=== PATIENT | male | born 1980 | race Caucasian/White ===

== ENCOUNTER 2017-04-24 19:11 | Inpatient (IN) | payer BC, OTHER ==
[~2017-04-24] VITALS: Ht 180.3 cm; Wt 77.1 kg
--- NOTE | 2017-04-24 22:30 | NUR ---
Pre admission note Pt assessed in intake office. Pt appears intoxicated upon arrival but stable at this time. V/S WNL. Policies on medication disposal explained to and understood by Pt. Pt is suitable for admission. Will admit to unit.
[2017-04-24 22:40] LABS: *AMPHETAMINE, URINE POSITIVE (NEGATIVE); *BARBITURATE, URINE NEGATIVE (NEGATIVE); *CANNABINOID, URINE NEGATIVE (NEGATIVE); *COCCAINE, URINE NEGATIVE (NEGATIVE); *OPIATE, URINE POSITIVE (NEGATIVE); *PHENCYCLIDINE SCREEN,URINE NEGATIVE (NEGATIVE)
--- NOTE | 2017-04-24 22:45 | NUR ---
Admission note Pt is a 36 yo male, A+Ox4, presenting to [facility] for Methamphetamine/Cocaine/Benzo/Opiate dependence. Pt has Allergies Mushroom, Avocado, and mashed potatoes, is Full Code status, and on Regular diet. Pt is 5'11" in height and 170 LBS in weight. Pt has medical HX of Anxiety, depression, and Bipolar II. Pt has family HX of HTN from Father. Pt has Primary care provider named DR. Lange. Pt has been using Methamphetamine intranasally for 10 months (16 days currently), has reached a level of 3.5gm/daily, and last dose was 3.5gm on 04-24-17 @1700. Pt has been using cocaine intranasally for 13 years (16 days currently), has reached a level of 3.5gm/daily, and last dose was 3.5gm on 04-24-17 @1700. Pt has been taking Klonopin PO for 2 years (16 days currently), has reached a level of 2mg/daily, and last dose was 2mg on 04-20-17. Pt has been taking Xanax Po for 2 years (16 days currently), has reached a level of 2mg/daily, and last dose was 2mg on 04-18-17. Pt has been taking Vicodin PO for 2 years (16 days currently), has reached a level of 100mg/week, and last dose was 20mg on 04-24-17 @1700. Pt has been taking home medications as follows: [place] 600mg BID-Last dose was 600mg on 04-24-17 @2199, Propranolol 40mg BID-Last dose was 40mg on 04-24-17 @2199, Wellbutrin 150mg QD-Last dose 150mg 04-23-17, Klonopin 1mg BID-Last dose was 2mg on 04-20-17, Xanax 1mg BIDPRN- Last dose was 2mg on 04-18-17. Pt has HX of previous detox/rehab for 30 days in February 2017 [facility] in [place], [place]. Pt continued sobriety for a total of "52 days" relapse 16 days ago. This was the Pt's last time sober. Pt has no smoked cigarettes since "high school age". Pt appears intoxicated upon admission but is stable at this time. No s/s of distress noted at this time. Respirations even and unlabored. Will continue to monitor.
[2017-04-24] MEDS ORDERED: diphenhydrAMINE 50 MG CAPSULE PO PRN (23:00)
[2017-04-24] MEDS ORDERED: ACETAMINOPHEN 325 MG TABLET PO PRN (23:00)
[2017-04-24] MEDS ORDERED: LOPERAMIDE HCL 2 MG CAPSULE PO PRN ×2 (23:00)
[2017-04-24] MEDS ORDERED: HYDROXYZINE PAMOATE 25 MG CAPSULE PO PRN (23:00)
[2017-04-24] MEDS ORDERED: ONDANSETRON ODT 4 MG TAB.RAPDIS SL PRN (23:00)
[2017-04-24] MEDS ORDERED: MAG HYDROX/AL HYDROX/SIMETH 30 ML LIQUID UDC PO PRN (23:00)
[2017-04-24] MEDS ORDERED: CLONIDINE HCL 0.1 MG TABLET PO PRN (23:00)
[2017-04-24] MEDS ORDERED: LORAZEPAM 2 MG/1 ML VIAL IM PRN (23:00)
[2017-04-24] MEDS ORDERED: DICYCLOMINE HCL 20 MG TABLET PO PRN (23:00)
[2017-04-24] MEDS ORDERED: DIAZEPAM 5 MG TABLET PO PRN (23:00)
[2017-04-24] MEDS ORDERED: BUPRENORPHINE HCL 2 MG TAB.SUBL SL PRN (23:00)
[2017-04-24] MEDS ORDERED: MAGNESIUM HYDROXIDE 30 ML LIQUID UDC PO PRN (23:00)
[2017-04-24] MEDS ORDERED: IBUPROFEN 400 MG TABLET PO PRN (23:00)
[2017-04-24] MEDS ORDERED: MIRALAX 17 GM POWD.PACK PO PRN (23:00)
[2017-04-24] MEDS ORDERED: DIAZEPAM 10 MG TABLET PO PRN (23:00)
[2017-04-25 00:04] VITALS: BP 139/92
[2017-04-25 00:04] LABS: BASOPHILS # (AUTO) 0.1 K/uL (0.0-8.0); EOSINOPHILS # (AUTO) 0.1 K/uL (0.0-0.7); EOSINOPHILS % (AUTO) 1.3 % (0.0-7.0); HEMATOCRIT 39.2 % (40-50); HEMOGLOBIN 13.3 G/DL (14.0-18.0); LYMPHOCYTES # (AUTO) 2.2 K/UL (0.8-4.8); LYMPHOCYTES % (AUTO) 29.7 % (20.5-51.5); MEAN CORPUSCULAR HEMOGLOBIN 30.5 UUG (27.0-31.0); MEAN CORPUSCULAR HGB CONC 34 g/dL (32.0-37.0); MEAN CORPUSCULAR VOLUME 89.8 FL (82.0-92.0); MONOCYTES # (AUTO) 0.7 K/UL (0.1-1.30); MONOCYTES % (AUTO) 9.4 % (0.0-11.0); NEUTROPHILS # (AUTO) 4.2 K/UL (1.8-8.9); NEUTROPHILS % (AUTO) 58.6 % (38.5-71.5); PLATELET COUNT (AUTO) 406 K/UL (150-450); RED BLOOD CELL COUNT(AUTO) 4.37 MIL/UL (4.7-6.1); WHITE BLOOD COUNT (AUTO) 7.3 K/UL (4.0-11.2)
[2017-04-25] MEDS ORDERED: LORAZEPAM 1 MG TABLET ONE (00:04)
[2017-04-25] MEDS: DIAZEPAM 10 MG TABLET PO PRN ×2 (00:06→20:09)
--- NOTE | 2017-04-25 00:06 | NUR ---
PRN Valium Pt c/o anxiety with CIWA: 10. PRN Valium 10mg given and tolerated well. Will reassess within 1 HR. Will continue to monitor.
[2017-04-25 00:16] LABS: ALANINE AMINOTRANSFERASE 62 U/L (16-63); ALKALINE PHOSPHATASE 64 U/L (50-136); AMYLASE 28 U/L (25-115); ASPARTATE AMINOTRANSFERASE 64 U/L (15-37); BILIRUBIN,TOTAL 0.1 mg/dL (0.2-1.0); CARBON DIOXIDE 29 mmol/L (21-32); CHLORIDE 108 mmol/L (98-107); CREATININE 1.2 mg/dL (0.6-1.3); GLUCOSE 115 mg/dL (74-106); LIPASE 202 U/L (73-393); MAGNESIUM 2.3 mg/dL (1.8-2.4); POTASSIUM 3.5 mmol/L (3.5-5.1); TOTAL PROTEIN, SERUM 6.5 g/dL (6.4-8.2); UREA NITROGEN, BLOOD 13 mg/dL (7-18)
[2017-04-25] MEDS ORDERED: DIAZEPAM 10 MG TABLET ONE (00:16)
[2017-04-25 00:21] LABS: ETHANOL < 3 MG/DL (0-0)
[2017-04-25 00:26] LABS: THYROID STIMULATING HORMONE 0.739 mIU/mL (0.358-3.740)
[2017-04-25] MEDS ORDERED: CLON1TAB PO (00:36)
[2017-04-25] MEDS ORDERED: LITH600C PO (00:37)
[2017-04-25] MEDS ORDERED: ALPR2TAB7 PO (00:37)
[2017-04-25] MEDS ORDERED: PROP40TA7 PO (00:39)
[2017-04-25] MEDS ORDERED: BUPR-96 PO (00:39)
[2017-04-25] MEDS ORDERED: ASEN10TA9 SL (00:40)
[2017-04-25] MEDS ORDERED: [UNRECOGNIZED DRUG - REMARK] (00:41)
--- NOTE | 2017-04-25 01:02 | NUR ---
PRN Valium Reassessment Medication effective. Pt shows reduction in anxiety with CIWA: 6. No s/s of ASE/distress noted at this time. Respirations even and unlabored. Will continue to monitor.
[2017-04-25 04:22] VITALS: BP 123/74
--- NOTE | 2017-04-25 06:56 | NUR ---
End of shift note Pt is a 36 yo male, A+Ox4, presenting to [facility] for Methamphetamine/Cocaine/Benzo/Opiate dependence. Pt has Allergies Mushroom, Avocado, and mashed potatoes, is Full Code status, and on Regular diet. Pt has medical HX of Anxiety, depression, and Bipolar II. Pt is on PRN medications. Pt was given PRN Valium 10mg @0006. Pt slept for a total of 5 HRS. Last COWS: 4 and Last CIWA: 3 @0400. No s/s of distress noted at this time. Respirations even and unlabored. Will endorse to day shift nurse.
--- NOTE | 2017-04-25 07:30 | NUR ---
Start of shift note; Received report from night nurse. Patient is a 36 year old male admitted on 04/24/17 for Opiate/ Benzo/ Methamphetamine/ Cocaine dependence. Patient reported history of Bipolar II, depression and anxiety. Patient is on full code status, Allergic to mushroom, avocado, mashed potatoes. Skin is intact. Patient received Valium PRN last night noted to be effective. Patient slept for 5 hours. Patient's last COWS is 4 and last CIWA is 3 at 0400. Patient is on fall and seizure precaution. Bed in lowest position, call light within reach. Will continue to monitor patient.
[2017-04-25 08:00] VITALS: BP 118/64
[2017-04-25] MEDS ORDERED: TUBERCULIN,PURIF.PROT.DERIV. 5 TU/0.1 ML TEST ID ONE ×2 (09:00→11:15)
[2017-04-25] MEDS: MULTIVITAMINS,THERAPEUTIC TABLET PO SCH (09:00)
[2017-04-25] MEDS: DOCUSATE SODIUM 250 MG CAPSULE PO SCH (09:00)
[2017-04-25] MEDS ORDERED: LITHIUM CARBONATE PO SCH (10:45)
[2017-04-25] MEDS: buPROPion XL 150 MG TAB.SR.24H PO SCH (11:22)
[2017-04-25] MEDS: LITHIUM CARBONATE 300 MG CAPSULE PO SCH ×2 (11:22→16:13)
--- NOTE | 2017-04-25 11:34 | NUR ---
PRN medication; Patient's COWS is currently 12. Patient was seen and evaluated by . ordered to give patient PRN Subutex as ordered and to start a 4 day Subutex taper at 1300 today. PRN Subutex 4mg SL given to patient. Instructions given to patient regarding use of medication and route, verbalized understanding. Witnessed patient take the medication and observed patient closely for "cheeking". Educated patient regarding unit protocols and policies, patient verbalized understanding. Addendum: 04/25/17 at 1156 by KATHY ARELLANO LVN Disregard above note, wrong patient documentation.
[2017-04-25 12:00] VITALS: BP 135/51
[2017-04-25] MEDS ORDERED: IBUPROFEN 400 MG TABLET PO PRN (12:30)
[2017-04-25] MEDS ORDERED: IBUPROFEN 800 MG TABLET PO PRN (12:45)
[2017-04-25 16:00] VITALS: BP 102/80
[2017-04-25] MEDS: PROPRANOLOL HCL 40 MG TABLET PO SCH (16:14)
--- NOTE | 2017-04-25 16:53 | NUR ---
PRN medication; Patient's current CIWA score is 7, patient has slight tremors to touch, very agitated and anxious, sweating with flushed face. PRN Valium 5mg PO given for CIWA score of 7. Will continue to monitor pateint.
--- NOTE | 2017-04-25 17:53 | NUR ---
Re-assessment; Patient's current CIWA score is 4, patient is still anxious, flushed face, tremors to touch. PRN medication is effective.
--- NOTE | 2017-04-25 18:24 | NUR ---
End of shift note; Patient is AOX4. Patient is a 36 year old male admitted on 04/24/17 for Opiate/ Benzo/ Methamphetamine/ Cocaine dependence. Patient reported history of Bipolar II, depression and anxiety. Patient is on full code status, Allergic to mushroom, avocado, mashed potatoes. Skin is intact. Patient remained compliant with treatment plan. Medications were effective in reducing withdrawal symptoms. Patient is on fall and seizure precaution. Bed in lowest position, call light within reach. Met all needs.
[2017-04-25 20:00] VITALS: BP 103/67
--- NOTE | 2017-04-25 20:00 | NUR ---
Start of shift Patient is a 36-year old, male, admitted for Opiate, Benzo, Methamphetamine and Cocaine dependence. With PMHx of Bipolar II, Depression and Anxiety. Patient is Full Code, Allergic to mushroom, avocadoes and potatoes. On Regular diet. On PRN medications to control withdrawal symptoms. Pt is AAOx4 and with anxiety noted at this time. Pt is ambulatory with steady gait and with intact skin. Fall, universal, seizure and safety prec in place. Call light within reach. Pt verbalized understanding of teachings and instructions. Latest COWS=8, CIWA=10. Will continue to monitor.
[2017-04-25] MEDS: [UNRECOGNIZED DRUG - OTHER] PO SCH (20:09)
[2017-04-25] MEDS: METHOCARBAMOL 750 MG TABLET PO PRN (20:09)
[2017-04-25] MEDS: FAMOTIDINE 20 MG TABLET PO SCH (20:09)
--- NOTE | 2017-04-25 20:11 | NUR ---
RN note PRN Robaxin, Clonidine and Valium Pt c/o generalized muscle pain=7/10, administered Robaxin 750 mg PO. Pt noted to be anxious and restless and with tremors observed. Administered Clonidine 0.1 mg PO. Pt with CIWA of 10 and verbalized "I'm coming off really bad." Administered Valium 10 mg PO. Will reassess.
[2017-04-25 20:27] LABS: *OCCULT BLOOD STOOL NEGATIVE (NEGATIVE)
[2017-04-25] MEDS ORDERED: SAPHRIS 10 MG PO SCH (21:00)
--- NOTE | 2017-04-25 21:20 | NUR ---
RN note reassess Pt verbalized generalized pain level=3/10. Pt also verbalized relief from anxiety and with tremors controlled. CIWA=6.
[2017-04-26] VITALS: BP 108/70
[2017-04-26 04:00] VITALS: BP 120/74
--- NOTE | 2017-04-26 04:10 | NUR ---
RN note PRN Robaxin Pt c/o generalized muscle pain=610. Administered Robaxin 750 mg PO as ordered. Signed MAR [email or web address] the time of administration of the medication. Will reassess.
--- NOTE | 2017-04-26 04:40 | NUR ---
RN note reassess Pt asleep on bed, no SOB nor facial grimacing noted. Robaxin is effective.
--- NOTE | 2017-04-26 07:04 | NUR ---
End of shift Patient is a 36-year old, male, admitted for Opiate, Benzo, Methamphetamine and Cocaine dependence. With PMHx of Bipolar II, Depression and Anxiety. Patient is Full Code, Allergic to mushroom, avocadoes and potatoes. On Regular diet. On PRN medications to control withdrawal symptoms. Pt is AAOx4 and with anxiety noted at this time. Pt is ambulatory with steady gait and with intact skin. Fall, universal, seizure and safety prec in place. Call light within reach. Pt verbalized understanding of teachings and instructions. Latest COWS=6, CIWA=5, slept for 8 hours. Endorsed to AM shift nurse for continuity of care.
--- NOTE | 2017-04-26 07:30 | NUR ---
Start of shift note; Received report from night nurse. Patient is a 36 year old male admitted on 04/24/17 for Opiate/ Benzo/ Methamphetamine/ Cocaine dependence. Patient reported history of Bipolar II, depression and anxiety. Patient is on full code status, Allergic to mushroom, avocado, mashed potatoes. Skin is intact. Patient received Valium, Clonidine and Robaxin PRN last night noted to be effective. Patient slept for 8 hours. Patient's last COWS is 6 and last CIWA is 5 at 0400. Patient is on fall and seizure precaution. Bed in lowest position, call light within reach. Will continue to monitor patient.
[2017-04-26 08:00] VITALS: BP 97/62
[2017-04-26] MEDS: FAMOTIDINE 20 MG TABLET PO SCH ×2 (09:31→20:34)
[2017-04-26] MEDS: LITHIUM CARBONATE 300 MG CAPSULE PO SCH ×2 (09:31→16:33)
[2017-04-26] MEDS: MULTIVITAMINS,THERAPEUTIC TABLET PO SCH (09:31)
[2017-04-26] MEDS: DOCUSATE SODIUM 250 MG CAPSULE PO SCH (09:31)
[2017-04-26] MEDS: buPROPion XL 150 MG TAB.SR.24H PO SCH (09:31)
[2017-04-26] MEDS: PROPRANOLOL HCL 40 MG TABLET PO SCH ×2 (09:32→16:33)
--- NOTE | 2017-04-26 09:57 | NUR ---
Stool occult blood result; Stool occult blood result noted to be negative.
[2017-04-26 12:00] VITALS: BP 130/53
--- NOTE | 2017-04-26 12:07 | NUR ---
Psychiatrist communication; on unit. Notified Dr. Ontiveros regarding patient's current situation. Called crisis team to further evaluate patient.
--- NOTE | 2017-04-26 12:40 | NUR ---
Crisis team communication; Crisis team arrived on the unit. Patient was seen and evaluated by Sidney from crisis team. Per Sidney, patient does not meet the criteria for a hold order. Patient currently denies suicidal or homicidal ideations. Will continue to monitor patient.
[2017-04-26] MEDS ORDERED: DIAZEPAM 5 MG TABLET PO PRN (13:30)
[2017-04-26] MEDS ORDERED: DIAZEPAM 10 MG TABLET PO PRN ×2 (13:30)
--- NOTE | 2017-04-26 13:41 | NUR ---
Focus of session was to assess clients mental state/stability for any indication of suicidal intent/plan/means. Client made statements about having a life insurance policy that would pay out on a suicide. Client said he will 'give up' if his leaves him and he would just disappear. He said he hasn't been a father in years. 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 He said he has no friends at all and that he has no money. He was malodorous with dried blood on his nostrils and his bottom lip. He refused prn Vistaril from RN despite being told it might help his agitation. Client was crying at times. Expressions of self-loathing and self-pity. Help-rejecting. He was very perseverative about wanting to talk to his and then said he could just leave AMA because he was paying for this himself. Client was somewhat manic. This automotive service writer described session to the head RN and also to the clients psychiatrist who came to see him.
[2017-04-26 14:09] LABS: HEPATITIS B SURFACE AG Negative (Negative)
--- NOTE | 2017-04-26 14:20 | NUR ---
Clinician encouraged client to attend group at 3:30 today. Client responded "No, not interested".
--- NOTE | 2017-04-26 15:09 | NUR ---
communication; Notified Dr. Sheppard that patient would like to leave AMA.
--- NOTE | 2017-04-26 15:17 | NUR ---
AMA note; Patient decided to leave AMA. Multidisciplinary staff attempted to convince to stay, unsuccessful. Notified Dr. Sheppard regarding patient's current condition. Educated patient regarding consequences and risk of leaving AMA. All patient's belongings, valuables , home medications returned to patient. Patient denies suicidal / homicidal ideations at this time. Community resources list given to patient incase he needs help. Met all needs.
[2017-04-26 16:35] VITALS: BP 132/80
--- NOTE | 2017-04-26 16:35 | NUR ---
Nurse; Patient changed his mind and decided to continue with treatment plan per client services coordinator. Body search done along with TRUCKING SUPERVISOR, no changes noted. Patient does not seem intoxicated. Patient denies suicidal /homicidal ideations at this time. Re-admitted patient. Will resume with patient's treatment plan.
--- NOTE | 2017-04-26 16:43 | NUR ---
PRN medication; Patient appears anxious and agitated. PRN Vistaril 50mg PO given as per MD order for anxiety. Will continue to monitor patient.
--- NOTE | 2017-04-26 17:43 | NUR ---
Re-assessment; Patient is calm and comfortable at this time. PRN medication is effective.
--- NOTE | 2017-04-26 18:20 | NUR ---
End of shift note; Patient is AOX4. Patient is a 36 year old male admitted on 04/24/17 for Opiate/ Benzo/ Methamphetamine/ Cocaine dependence. Patient reported history of Bipolar II, depression and anxiety. Patient is on full code status, Allergic to mushroom, avocado, mashed potatoes. Skin is intact. Patient was evaluated by psychiatrist. Patient denies suicidal / homicidal ideations at this time. Patient is on fall and seizure precaution. Bed in lowest position, call light within reach. Met all needs.
[2017-04-26 18:42] LABS: *AMPHETAMINE, URINE POSITIVE (NEGATIVE); *BARBITURATE, URINE NEGATIVE (NEGATIVE); *CANNABINOID, URINE NEGATIVE (NEGATIVE); *COCCAINE, URINE NEGATIVE (NEGATIVE); *OPIATE, URINE NEGATIVE (NEGATIVE); *PHENCYCLIDINE SCREEN,URINE NEGATIVE (NEGATIVE)
[2017-04-26 20:00] VITALS: BP 135/61
--- NOTE | 2017-04-26 20:00 | NUR ---
START OF SHIFT NOTE PATIENT IN HIS ROOM RESTING. ALERT AND ORIENTED X 4. RESPIRATION EVEN AND UNLABORED. PATIENT REPORTS PAIN ON HIS RIGHT FOOT PAIN AND REQUESTING FOR MEDICATION. NO N/V. PATIENT NOTED EMOTIONAL AND VERBALIZES ABOUT HIS . RELAXATION TECHNIQUE PROVIDED AND POSITIVE ENCOURAGEMENT. RECEIVED REPORT FROM DAY SHIFT NURSE. PATIENT IS A 36 YEAR OLD MALE, ADMITTED FOR METH, COCAINE,BENZO AND OPIATE DEPENDENCE. PATIENT WAS USING FOR THE LAST 16 DAYS. PATIENT IS ON PRN ONLY, NOT ON TAPER. PATIENT REPORTS PMH OF BIPOLAR II, DEPRESSION AND ANXIETY.NO SEIZURE HISTORY. PATIENT IS FULL CODE, REGULAR DIET AND ALLERGIC TO AVOCADO, MASHED POTATOES AND MUSHROOM. SKIN INTACT. PATIENT IS MEDICALLY CLEARED TO BE DISCHARGED TOMORROW.PATIENT WAS GIVEN PRN VISTARIL DURING THE DAY. LAST COWS 3 AND CIWA 2. ON FALL/SEIZURE PRECAUTION. SAFETY MEASURES IN PLACE. CALL LIGHT IN REACH. WILL CONTINUE TO MONITOR.
[2017-04-26] MEDS: [UNRECOGNIZED DRUG - OTHER] PO SCH (20:34)
[2017-04-26] MEDS: METHOCARBAMOL 750 MG TABLET PO PRN (20:34)
[2017-04-27] VITALS: BP 124/64
[2017-04-27 04:00] VITALS: BP 103/60
--- NOTE | 2017-04-27 07:34 | NUR ---
END OF SHIFT NOTE PATIENT REMAIN STABLE. REMAIN ALERT AND ORIENTED X 4. RESPIRATION EVEN AND UNLABORED. LUNGS CLEAR AND ABDOMEN SOFT AND NON-DISTENDED. PATIENT REPORTED PAIN ON HER LEFT WRIST AND SLIGHTLY ANXIOUS. NO N/V DURING SHIFT. PATIENT IS A 45 YEAR OLD FEMALE NEWLY ADMITTED FOR ETOH DEPENDENCE. PATIENT DRINKS 12 CANS OF BEER DAILY FOR 15 YEARS , LAST DRINK WAS 2 BEERS TODAY, PATIENT USE MARIJUANA 1 GRAM DAILY FOR 25 YEARS, LAST USE WAS " 2 HITS" TODAY AND VICODIN 2 750 MG TABS FOR 5 YEARS , LAST USE WAS 2 WEEKS AGO. PATIENT IS UNDER OBSERVATION. SKIN INTACT. NOT ON TAPER, PRN ATIVAN AVAILABLE. PATIENT REPORTS PMH OF BIPOLAR AND LEFT WRIST TENDON REPAIR. PATIENT IS FULL CODE, REGULAR DIET AND NO KNOWN ALLERGY. NO TREATMENT HISTORY PROVIDED. PATIENT WAS GIVEN PRN MOTRIN AT 1939 FOR LEFT WRIST PAIN. PATIENT IN HER ROOM MOST OF THE SHIFT. ON FALL/SEIZURE PRECAUTION. SAFETY MEASURES IN PLACE. CALL LIGHT IN REACH. WILL CONTINUE TO MONITOR. SLEPT 9 HOURS. FLUID INTAKE 829 ML. VOIDED X 1 . NO BM. LAST CIWA 0.
--- NOTE | 2017-04-27 07:40 | NUR ---
start of shift note: pt is admitted to [facility] for meth/cocaine/benzo/opiate withdrawal/dependence. pt without pain or discomfort. pts last cows 1 and ciwa 0. tb skin test is negative at this time. pt slept 7 hrs. pt is set for discharge today will assist pt in discharging and will continue to monitor pt for any changes.
[2017-04-27] MEDS: DOCUSATE SODIUM 250 MG CAPSULE PO SCH (10:04)
[2017-04-27] MEDS: buPROPion XL 150 MG TAB.SR.24H PO SCH (10:04)
[2017-04-27] MEDS: LITHIUM CARBONATE 300 MG CAPSULE PO SCH (10:04)
[2017-04-27 10:05] VITALS: BP 117/77
[2017-04-27] MEDS: FAMOTIDINE 20 MG TABLET PO SCH (10:05)
[2017-04-27] MEDS: MULTIVITAMINS,THERAPEUTIC TABLET PO SCH (10:05)
[2017-04-27] MEDS: PROPRANOLOL HCL 40 MG TABLET PO SCH (10:05)
[2017-04-27] MEDS ORDERED: CLON0.1T14 PO (11:06)
[2017-04-27] MEDS ORDERED: HYDR-3895 PO (11:06)
[2017-04-27] MEDS ORDERED: FAMO20TA8 PO (11:06)
[2017-04-27] MEDS ORDERED: METH-33 PO (11:06)
[2017-04-27] MEDS ORDERED: IBUP-1482 PO (11:06)
--- NOTE | 2017-04-27 11:57 | NUR ---
discharge note: pt left the unit very agitated, verbalizing he does not want to go to treatment. pt was medically cleared for discharge. pt was fickle minded on going AMA. pt teaching was administered and pt verbalized understanding. all personal belongings were returned. pt received all scheduled medications as ordered. pts V/S WNL. pt without pain or discomfort or withdrawal symptoms. pt appeared to have multiple episodes of mood swings.
== END 2017-04-27 11:57 | DRG 895 ==
LOC: SRC 21:34
PROVIDERS: ADMIT Internal Medicine; ATTEND Internal Medicine
PROC: HZ2ZZZZ Detoxification Services for Substance Abuse Treatment (ICD-10-PCS; principal; 2017-04-24)
PROC: HZ51ZZZ Individual Psychotherapy for Substance Abuse Treatment, Behavioral (ICD-10-PCS; 2017-04-26)
DX: F11.23 Opioid dependence with withdrawal (principal); F31.64 Bipolar disorder, current episode mixed, severe, with psychotic features; M62.82 Rhabdomyolysis; E46 Unspecified protein-calorie malnutrition; E88.09 Other disorders of plasma-protein metabolism, not elsewhere classified; F14.220 Cocaine dependence with intoxication, uncomplicated; F15.188 Other stimulant abuse with other stimulant-induced disorder; K71.10 Toxic liver disease with hepatic necrosis, without coma; Z68.23 Body mass index [BMI] 23.0-23.9, adult; F41.9 Anxiety disorder, unspecified; Z79.899 Other long term (current) drug therapy
CPT/HCPCS: 36415; 80307; 80324; 80361; 83690; 83735; 84443; 85025; 86580; 86705; 87340; 87806; G6040-TC